=== PATIENT | female | born 1965 | race Caucasian/White ===

== ENCOUNTER 2016-04-11 12:12 | Outpatient (CLI) | payer BC | END 2016-04-11 12:13 | disposition home or self-care (01) | DX: E11.9 Type 2 diabetes mellitus without complications (principal); R20.9 Unspecified disturbances of skin sensation ==

== ENCOUNTER 2017-03-09 08:00 | Outpatient (CLI) | payer BC ==
[2017-03-09 19:57] LABS: ALBUMIN 4.2 g/dL (3.2-5.5); ALBUMIN/GLOBULIN RATIO 1.4 (1.0-2.2); ALKALINE PHOSPHATASE 47 IU/L (42-121); ALT ALANINE AMINOTRANSFERASE 14 IU/L (10-60); AST ASPARTATE AMINOTRANSFERASE 18 IU/L (10-42); BILIRUBIN,TOTAL 0.3 mg/dL (0.2-1.0); BUN - BLOOD UREA NITROGEN 8 mg/dL (6-20); CALCIUM 8.8 mg/dL (8.5-10.3); CARBON DIOXIDE - CO2 27 mmol/L (21-32); CHLORIDE 101 mmol/L (101-111); CREATININE 0.5 mg/dL (0.4-1.0); GFR - MDRD 131 (>89); GLUCOSE 175 mg/dL (70-100); SODIUM 136 mmol/L (135-145); TOTAL PROTEIN 7.1 g/dL (6.7-8.2)
[2017-03-09 21:00] LABS: HB2 TOTAL 12.7 g/dL; HEMOGLOBIN A1C 0.71 g/dL; HEMOGLOBIN A1C % 7.3 % (4.6-6.2)
== END 2017-03-09 08:01 | disposition home or self-care (01) ==
LOC: LAB.WCP 08:00
PROVIDERS: ATTEND Physician Assistant Medical
DX: E11.9 Type 2 diabetes mellitus without complications (principal); E03.9 Hypothyroidism, unspecified
CPT/HCPCS: 36415; 80053; 82043; 83036; 84443

== ENCOUNTER 2019-08-04 07:00 | Outpatient (CLI) | payer OTHER ==
[2019-08-04 20:07] LABS: CANDIDA GROUP DNA NEGATIVE (NEGATIVE); CANDIDA KRUSEI DNA NEGATIVE (NEGATIVE); TRICHOMONAS VAGINALIS DNA NEGATIVE (NEGATIVE)
== END 2019-08-04 23:59 | disposition home or self-care (01) ==
LOC: LAB.R 07:00
PROVIDERS: ATTEND Obstetrics & Gynecology
DX: N89.8 Other specified noninflammatory disorders of vagina (principal)
CPT/HCPCS: 87661; 87801

== ENCOUNTER 2019-10-27 08:43 | Outpatient (CLI) | payer OTHER ==
[2019-10-27 12:09] LABS: CALCIUM 8.9 mg/dL (8.5-10.3); CREATININE 0.4 mg/dL (0.4-1.0)
== END 2019-10-27 23:59 | disposition home or self-care (01) ==
LOC: LAB.WCP 08:43
PROVIDERS: ATTEND Physician Assistant Medical
DX: E11.9 Type 2 diabetes mellitus without complications (principal)
CPT/HCPCS: 36415; 80048; 83036

== ENCOUNTER 2020-08-24 10:34 | Outpatient (CLI) | payer OTHER ==
[2020-08-24 17:49] LABS: BASOPHILS # (AUTO) 0.1 10^3/uL (0.0-0.1); BASOPHILS % (AUTO) 0.6 %; EOSINOPHILS # (AUTO) 0.1 10^3/uL (0.0-0.7); EOSINOPHILS % (AUTO) 1.4 %; HCT - HEMATOCRIT 41.6 % (37.0-47.0); HGB - HEMOGLOBIN 12.9 g/dL (12.0-16.0); LYMPHOCYTES # (AUTO) 1.3 10^3/uL (1.5-3.5); LYMPHOCYTES % (AUTO) 14.6 %; MEAN CORPUSCULAR HEMOGLOBIN 25.9 pg (27.0-31.0); MEAN CORPUSCULAR VOLUME 83.4 fL (81.0-99.0); MEAN PLATELET VOLUME 10.1 fL (7.9-10.8); MONOCYTES # (AUTO) 0.6 10^3/uL (0.0-1.0); MONOCYTES % (AUTO) 6.4 %; NEUTROPHILS # (AUTO) 6.7 10^3/uL (1.5-6.6); NEUTROPHILS % (AUTO) 76.4 %; PLT - PLATELET COUNT 300 10^3/uL (130-450); RED BLOOD COUNT 4.99 10^6/uL (4.20-5.40); RED CELL DISTRIBUTION WIDTH 17.8 % (12.0-15.0); WHITE BLOOD COUNT 8.7 x10^3/uL (4.8-10.8)
[2020-08-24 18:09] LABS: ALBUMIN 3.8 g/dL (3.2-5.5); ALBUMIN/GLOBULIN RATIO 1.1 (1.0-2.2); ALKALINE PHOSPHATASE 70 IU/L (42-121); ALT ALANINE AMINOTRANSFERASE 11 IU/L (10-60); AST ASPARTATE AMINOTRANSFERASE 13 IU/L (10-42); BILIRUBIN,TOTAL 0.3 mg/dL (0.2-1.0); BUN - BLOOD UREA NITROGEN 8 mg/dL (6-20); CALCIUM 8.9 mg/dL (8.5-10.3); CARBON DIOXIDE - CO2 26 mmol/L (21-32); CHLORIDE 99 mmol/L (101-111); CHOL/HDL RATIO 3.8 (<4.4); CHOLESTEROL 217 mg/dL; CREATININE 0.4 mg/dL (0.4-1.0); GFR - MDRD 168 (>89); GLUCOSE 126 mg/dL (70-100); HDL CHOLESTEROL 57 mg/dL; LDL CHOLESTEROL,CALCULATED 132 mg/dL; LDL/HDL RATIO 2.3 (<4.4); POTASSIUM 4.2 mmol/L (3.5-5.0); SODIUM 134 mmol/L (135-145); TOTAL PROTEIN 7.3 g/dL (6.7-8.2); TRIGLYCERIDES 139 mg/dL; VLDL CHOLESTEROL 28 mg/dL
[2020-08-24 21:09] LABS: ESTIMATED AVERAGE GLUCOSE 186 mg/dL (70-100); HEMOGLOBIN A1c% 8.1 % (4.27-6.07)
== END 2020-08-24 23:59 | disposition home or self-care (01) ==
LOC: LAB.WCP 10:34
PROVIDERS: ATTEND Internal Medicine Rheumatology
DX: E11.9 Type 2 diabetes mellitus without complications (principal); L40.50 Arthropathic psoriasis, unspecified
CPT/HCPCS: 36415; 80053; 80061; 83036; 83721; 85025; 85651

== ENCOUNTER 2022-03-13 15:33 | Outpatient (CLI) | payer OTHER ==
--- NOTE | 2022-03-15 11:03 | Mammography Report ---
BILATERAL DIGITAL SCREENING MAMMOGRAM 3D/2D: 03/13/2022 CLINICAL: Baseline exam. Routine screening. No prior exams were available for comparison. There are scattered areas of fibroglandular density in both breasts (category b / 25%-50% glandular t issue). No significant masses, calcifications, or other findings are seen in either breast. IMPRESSION: NEGATIVE There is no mammographic evidence of malignancy. A 1 year screening mammogram is recommended. Based on the Tyrer Cuzick model (a risk assessment model) the patients lifetime risk is 7.7% and her 10 year risk is 2.2%. According to the ACR, ACS, and NCCN guidelines, an annual breast MRI exam skylar g with mammogram is recommended if the patients lifetime risk is 20% or greater. This exam was interpreted at Station ID: [id number]. NOTE: For mammograms, a report in lay terms will be sent to the patient. Approximately 15% of breast malignancies will not be visualized mammographically. In the management of a palpable breast mass, a negative mammogram must not discourage biopsy of a clinically suspicious lesion. Electronically Signed By: Cata woo/mehul:03/14/2022 11:28:41 ACR BI-RADS Category 1: Negative 3341F PARENCHYMAL PATTERN: (A) - The breast(s) demonstrate(s) scattered fibroglandular densities. BI-RADS CATEGORY: (1) - 1 RECOMMENDATION: (ANNUAL) - Recommend routine annual screening mammography. [id number] 1 year screening LATERALITY: (B)
== END 2022-03-13 15:34 | disposition home or self-care (01) ==
LOC: DI.N 15:33
DX: Z12.31 Encounter for screening mammogram for malignant neoplasm of breast (principal)

== ENCOUNTER 2022-03-27 15:14 | Outpatient (CLI) | payer OTHER ==
--- NOTE | 2022-03-28 14:23 | Ultrasound Report ---
PROCEDURE: Pelvic w/Transvaginal INDICATIONS: DUB TECHNIQUE: Real-time scanning was performed of the pelvic organs, with image documentation. Additional endovagi nal scanning was necessary due to incomplete visualization of the adnexal and endometrial structures by transabdominal scanning. COMPARISON: None. FINDINGS: Uterus: Uterus is anteverted and enlarged in size at 12.7 x 7.1 x 7.8 cm. The myometrium is heterog eneous. There is a fundal anterior intramural focus of heterogeneous echogenicity measuring 22 x 18 x 20 mm. A right posterior intramural focus of heterogeneous echogenicity measures 18 x 17 x 15 mm. Th ere is a similar focus near the cervix measuring 31 x 20 x 32 mm. The endometrium measures 10 mm in c ombined thickness. The endometrium is thickened with increased appearance of vascularity. No definit aron mass is clearly identified. Ovaries: The right ovary measures 3.0 x 1.4 x 1.8 cm, with a calculated ovarian volume of 4 cc. The left ovary measures 4.0 x 2.1 x 3.0 cm, with a calculated ovarian volume of 3.2 cc. There is a focus of decreased echogenicity within the left ovary measuring 1.9 x 1.8 x 1.8 cm. Other: No pathologic free abdominal or pelvic fluid. IMPRESSION: Uterus is enlarged with multiple foci of heterogeneous echogenicity most suggestive of fibroids. Endometrial is thickened if this patient is postmenopausal, and endometrial biopsy is recommended. Reviewed by: Genia Ramey MD on 03/28/2022 2:22 PM PST Approved by: Genia Ramey MD on 03/28/2022 2:22 PM PST Station ID: [id number]
== END 2022-03-27 15:15 | disposition home or self-care (01) ==
LOC: DI 15:14
PROVIDERS: ATTEND Physician Assistant Medical
DX: R93.89 Abnormal findings on diagnostic imaging of other specified body structures (principal); N93.8 Other specified abnormal uterine and vaginal bleeding

== ENCOUNTER 2022-05-01 10:04 | Outpatient (CLI) | payer OTHER ==
[2022-05-01 12:46] LABS: BASOPHILS # (AUTO) 0.1 10^3/uL (0.0-0.1); BASOPHILS % (AUTO) 0.6 %; EOSINOPHILS # (AUTO) 0.2 10^3/uL (0.0-0.7); EOSINOPHILS % (AUTO) 1.7 %; HCT - HEMATOCRIT 45.4 % (37.0-47.0); HGB - HEMOGLOBIN 14.5 g/dL (12.0-16.0); LYMPHOCYTES # (AUTO) 1.4 10^3/uL (1.5-3.5); MEAN CORPUSCULAR HEMOGLOBIN 28.8 pg (27.0-31.0); MEAN CORPUSCULAR HGB CONC 31.9 g/dL (32.0-36.0); MEAN CORPUSCULAR VOLUME 90.3 fL (81.0-99.0); MEAN PLATELET VOLUME 11.2 fL (7.9-10.8); MONOCYTES # (AUTO) 0.6 10^3/uL (0.0-1.0); MONOCYTES % (AUTO) 6.9 %; NEUTROPHILS # (AUTO) 6.4 10^3/uL (1.5-6.6); NEUTROPHILS % (AUTO) 74.1 %; PLT - PLATELET COUNT 235 10^3/uL (130-450); RED BLOOD COUNT 5.03 10^6/uL (4.20-5.40); RED CELL DISTRIBUTION WIDTH 13.7 % (12.0-15.0); WHITE BLOOD COUNT 8.7 x10^3/uL (4.8-10.8)
[2022-05-01 13:14] LABS: ALBUMIN 3.8 g/dL (3.2-5.5); ALBUMIN/GLOBULIN RATIO 1.2 (1.0-2.2); BILIRUBIN,TOTAL 0.9 mg/dL (0.2-1.0); CALCIUM 9.2 mg/dL (8.5-10.3); CREATININE 0.6 mg/dL (0.4-1.0); POTASSIUM 4.1 mmol/L (3.5-5.0)
[2022-05-01 13:41] LABS: CHOL/HDL RATIO 2.8 (<4.4); CHOLESTEROL 159 mg/dL; HDL CHOLESTEROL 57 mg/dL; LDL CHOLESTEROL,CALCULATED 82 mg/dL; LDL/HDL RATIO 1.4 (<4.4); TRIGLYCERIDES 100 mg/dL; VLDL CHOLESTEROL 20 mg/dL
[2022-05-01 13:42] LABS: ESTIMATED AVERAGE GLUCOSE 258 mg/dL (70-100); HEMOGLOBIN A1c% 10.6 % (4.27-6.07)
[2022-05-01 13:51] LABS: THYROID STIMULATING HORMONE 0.59 uIU/mL (0.34-5.60)
[2022-05-01 14:19] LABS: FOLLICLE STIMULATING HORMONE 18.85 mIU/mL
== END 2022-05-01 10:05 | disposition home or self-care (01) ==
LOC: LAB.N 10:04
PROVIDERS: ATTEND Physician Assistant Medical
DX: Z00.00 Encounter for general adult medical examination without abnormal findings (principal); R93.89 Abnormal findings on diagnostic imaging of other specified body structures; E11.9 Type 2 diabetes mellitus without complications; E78.5 Hyperlipidemia, unspecified; E03.9 Hypothyroidism, unspecified
CPT/HCPCS: 36415; 80053; 80061; 83001; 83036; 83721; 84443; 85025

== ENCOUNTER 2022-05-25 07:06 | Outpatient (CLI) | payer OTHER ==
--- NOTE | 2022-05-25 10:49 | Ultrasound Report ---
PROCEDURE: Abdomen Limited INDICATIONS: RUQ ABDOMINAL PAIN TECHNIQUE: Real-time scanning was performed of the abdominal and retroperitoneal organs, with image documentatio n. COMPARISON: None. FINDINGS: Liver: Liver is normal in size and homogeneous in echotexture. Gallbladder: Cholelithiasis with gallbladder wall thickening. Biliary ducts: Intrahepatic bile ducts are non-dilated. Extrahepatic bile duct caliber measures 6 m m. Normal is 6-7 mm or less in diameter, or 10 mm or less post-cholecystectomy. Pancreas: Visualized portions of the pancreas are sonographically normal. Right kidney: Normal in size and echotexture. Right kidney measures 13.1 cm long. No hydronephrosis or nephrolithiasis. No solid masses. No complex renal cystic lesions which require follow-up. Aorta: Visualized aorta is normal in caliber at less than 3 cm. IVC: Intrahepatic inferior vena cava is patent. Miscellaneous: No free abdominal fluid. IMPRESSION: 1.Cholelithiasis with gallbladder wall thickening. The gallbladder is not distended and no sonographi c Hu's sign was reported. Findings probably do not indicate acute cholecystitis at this time, but is not entirely excluded based on these images. Reviewed by: Miguel Medina on 05/25/2022 10:48 AM PDT Approved by: Miguel Medina on 05/25/2022 10:48 AM PDT Station ID: [id number]
== END 2022-05-25 07:07 | disposition home or self-care (01) ==
LOC: DI 07:06
PROVIDERS: ATTEND Physician Assistant Medical
DX: R10.11 Right upper quadrant pain (principal); K80.20 Calculus of gallbladder without cholecystitis without obstruction

== ENCOUNTER 2022-05-27 10:19 | Emergency (ER) | payer OTHER ==
[2022-05-27 11:03] LABS: HCG UR QUAL NEGATIVE
[2022-05-27 11:08] LABS: GLUCOSE, URINE (UA) 500 mg/dL (NEGATIVE); KETONES,URINE (UA) >=80 mg/dL (NEGATIVE); LEUKOCYTE ESTERASE, URINE NEGATIVE (NEGATIVE); NITRITE,URINE NEGATIVE (NEGATIVE); OCCULT BLOOD,URINE LARGE (NEGATIVE); PH,URINE 5.5 PH (5.0-7.5); PROTEIN,URINE 30 mg/dL (NEGATIVE); UROBILINOGEN,URINE 1 (NORMAL) E.U./dL (NORMAL)
[2022-05-27 11:11] LABS: BILIRUBIN,URINE MODERATE (NEGATIVE); CLARITY,URINE CLOUDY (CLEAR); ICTOTEST,URINE POSITIVE
[2022-05-27 11:12] LABS: BACTERIA,URINE Few /HPF (None Seen); CASTS, URINE 0-2 Cellular Casts /LPF; RBC,URINE TNTC /HPF (0-5); SQUAMOUS EPITHELIAL CELL,UR MOD Squamous (<= Few)
[2022-05-27] MEDS ORDERED: SODIUM CHLORIDE 0.9% 1,000 ML IV STA (11:44)
[2022-05-27] MEDS ORDERED: ONDANSETRON 4 MG/2 ML VIAL IVP STA (11:44)
[2022-05-27 11:46] LABS: BASOPHILS % (AUTO) 0.3 %; EOSINOPHILS % (AUTO) 0.3 %; HCT - HEMATOCRIT 48.1 % (37.0-47.0); HGB - HEMOGLOBIN 15.6 g/dL (12.0-16.0); LYMPHOCYTES # (AUTO) 0.5 10^3/uL (1.5-3.5); MEAN CORPUSCULAR HEMOGLOBIN 28.5 pg (27.0-31.0); MEAN CORPUSCULAR HGB CONC 32.4 g/dL (32.0-36.0); MEAN CORPUSCULAR VOLUME 87.8 fL (81.0-99.0); MEAN PLATELET VOLUME 9.8 fL (7.9-10.8); MONOCYTES # (AUTO) 0.6 10^3/uL (0.0-1.0); NEUTROPHILS # (AUTO) 5.4 10^3/uL (1.5-6.6); NEUTROPHILS % (AUTO) 82.9 %; PLT - PLATELET COUNT 199 10^3/uL (130-450); RED BLOOD COUNT 5.48 10^6/uL (4.20-5.40); RED CELL DISTRIBUTION WIDTH 14.4 % (12.0-15.0); WHITE BLOOD COUNT 6.6 x10^3/uL (4.8-10.8)
[2022-05-27 12:01] LABS: ALBUMIN 3.9 g/dL (3.2-5.5); ALBUMIN/GLOBULIN RATIO 1.1 (1.0-2.2); BILIRUBIN,TOTAL 5.2 mg/dL (0.2-1.0); CALCIUM 9.1 mg/dL (8.5-10.3); CREATININE 0.4 mg/dL (0.4-1.0); POTASSIUM 3.7 mmol/L (3.5-5.0); TOTAL PROTEIN 7.6 g/dL (6.7-8.2)
--- NOTE | 2022-05-27 13:10 | ED Physician Documentation ---
PD HPI ABD PAIN - Stated complaint Stated Complaint: ABD PX/NAUSEA/FEVER/CHILLS - Chief complaint Chief Complaint: Abd Pain - History obtained from History obtained from: Patient - Additional information Additional information: Patient is a 56-year-old female presenting for evaluation of right upper quadrant pain that has been intermittent over the past week. She recently had an outpatient ultrasound that showed gallstones and is scheduled for a consultation with the would be surgical group later this week. However yesterday night she started having increased pain and was unable to eat dinner.S he reported nausea and noted that she has been feeling itchy and looked yellow this morning.She does not take a blood thinner. Earlier in the week she felt like she had low-grade temperatures. She denies chest pain or difficulty breathing. Review of Systems Constitutional: denies: Chills Cardiac: denies: Chest pain / pressure Respiratory: denies: Dyspnea GI: reports: Abdominal Pain, Nausea. denies: Vomiting, Diarrhea : denies: Dysuria Musculoskeletal: denies: Back pain Neurologic: denies: Headache PD PAST MEDICAL HISTORY - Allergies Allergies/Adverse Reactions: Allergies Allergy/AdvReac Type Severity Reaction Status Date / Time sulfasalazine Allergy Unknown Verified 05/27/22 10:42 [From Sulfazine] PD ED PE NORMAL - General General: Alert and oriented X 3, No acute distress, Well developed/nourished - HEENT HEENT: Atraumatic, Other (Scleral icterus) - Neck Neck: Supple, no meningeal sign - Cardiac Cardiac: RRR - Respiratory Respiratory: No respiratory distress, Clear bilaterally - Abdomen Abdomen: Normal bowel sounds, Soft, Non distended, Other (No significant right upper quadrant tenderness) - Derm Derm: Other (Jaundice) - Extremities Extremities: No edema - Neuro Neuro: Normal speech Results - Vitals Vitals: Vital Signs - 24 hr 05/27/22 05/27/22 05/27/22 10:36 11:42 13:19 Temperature 36.7 C Heart Rate 97 93 88 Respiratory 24 18 18 Rate Blood Pressure 153/74 H 175/98 H 154/97 H O2 Saturation 97 97 100 05/27/22 05/27/22 05/27/22 15:13 17:03 19:07 Temperature Heart Rate 88 Respiratory 16 Rate Blood Pressure 153/79 H 149/89 H O2 Saturation 95 98 Oxygen O2 Source Room air - Labs Labs: Laboratory Tests 05/27/22 05/27/22 05/27/22 10:55 11:41 11:41 WBC 6.6 RBC 5.48 H Hgb 15.6 Hct 48.1 H MCV 87.8 MCH 28.5 MCHC 32.4 RDW 14.4 Plt Count 199 MPV 9.8 Neut # (Auto) 5.4 Lymph # (Auto) 0.5 L Kings # (Auto) 0.6 Eos # (Auto) 0.0 Baso # (Auto) 0.0 Absolute Nucleated RBC 0.00 Nucleated RBC % 0.0 Sodium 136 Potassium 3.7 Chloride 105 Carbon Dioxide 18 L Anion Gap 13.0 BUN 8 Creatinine 0.4 Estimated GFR (MDRD) 166 Glucose 108 H Calcium 9.1 Total Bilirubin 5.2 H AST 107 H ALT 305 H Alkaline Phosphatase 213 H Total Protein 7.6 Albumin 3.9 Globulin 3.7 Albumin/Globulin Ratio 1.1 Lipase 26 Urine Color BROWN Urine Clarity CLOUDY Urine pH 5.5 Ur Specific [place] 1.025 Urine Protein 30 H Urine Glucose (UA) 500 H Urine Ketones >=80 H Urine Occult Blood LARGE H Urine Nitrite NEGATIVE Urine Bilirubin MODERATE H Urine Urobilinogen 1 (NORMAL) Ur Leukocyte Esterase NEGATIVE Urine RBC TNTC H Urine WBC 11-25 H Ur Squamous Epith Cells MOD Squamous H Urine Bacteria Few Urine Casts 0-2 Cellular Casts Ur Microscopic Review INDICATED Urine Culture Comments NOT INDICATED Urine HCG, Qual NEGATIVE SARS-CoV-2 (PCR) 05/27/22 12:45 WBC RBC Hgb Hct MCV MCH MCHC RDW Plt Count MPV Neut # (Auto) Lymph # (Auto) Kings # (Auto) Eos # (Auto) Baso # (Auto) Absolute Nucleated RBC Nucleated RBC % Sodium Potassium Chloride Carbon Dioxide Anion Gap BUN Creatinine Estimated GFR (MDRD) Glucose Calcium Total Bilirubin AST ALT Alkaline Phosphatase Total Protein Albumin Globulin Albumin/Globulin Ratio Lipase Urine Color Urine Clarity Urine pH Ur Specific [place] Urine Protein Urine Glucose (UA) Urine Ketones Urine Occult Blood Urine Nitrite Urine Bilirubin Urine Urobilinogen Ur Leukocyte Esterase Urine RBC Urine WBC Ur Squamous Epith Cells Urine Bacteria Urine Casts Ur Microscopic Review Urine Culture Comments Urine HCG, Qual SARS-CoV-2 (PCR) NOT DETECTED PD Medical Decision Making - ED course Complexity details: reviewed results, re-evaluated patient ED course: 1311 - Discussed with on-call surgeon, Dr. Santizo. He agrees with plan for MRCP to see if she still has a biliary obstruction. If not then he would be able to consult and possibly take out her gallbladder this weekend. If she does have a biliary obstruction on her MRCP he recommends consideration of transfer to a facility that is able to perform an ERCP. It is possible that she could have a ERCP at another facility and be transferred back here for her cholecystectomy Is a recently done this with another patient. 1425 - Discussed with [facility]te GUERRA, Dr. Ramsey. He agrees with plan for MRCP. They do not have anyone available over the weekend to do an ERCP. If her MRCP still shows a biliary obstruction and then they would be able to do the ERCP but not until Sunday. He recommends we call him back once we have that result. Pt with RUQ pain and noted jaundice. Recent eval of her gallbladder shows cholelithiasis. VSS. No tenderness on exam as pain has resolved. Labs reviewed and significant for elevated bilirubin and LFTs. Concern for biliary obstruction. MRCP ordered and case d/w resolution manager surgery and violette GUERRA while MRCP pending. Pt given dose of zosyn. Declined pain meds. Pt signed out to Dr. Milton at shift change to f/u results of MRCP. If obstruction present, then pt will require transfer for ERCP. Departure - Departure Disposition: Home, Self Care Clinical Impression: Cholelithiasis Condition: Good Instructions: ED Gallstone W Biliary Colic Follow-Up: Surgical Care [Provider Group] Comments: Follow-up with the surgeon on Sunday as scheduled. Light low-protein low-fat diet as discussed. Return if worse.
--- NOTE | 2022-05-27 13:15 | Ultrasound Report ---
PROCEDURE: Abdomen Limited INDICATIONS: RUQ pain TECHNIQUE: Real-time focused scanning was performed of the abdomen, with image documentation. COMPARISON: Ultrasound 05/25/2022. FINDINGS: Liver is normal in size with mildly coarsened echotexture. A 2 mm calculus is seen in the gallbladder. Gallbladder wall thickening is seen measuring up to 4 mm. No significant pericholecystic fluid. Sonographic Hu sign is negative. No significant intrahepatic or extrahepatic biliary duct dilatation. The visualized portions of the pancreas are unremarkable. Right kidney measures 12.4 cm in length without hydronephrosis. No free fluid in the right upper quadrant. IMPRESSION: Cholelithiasis is again seen with gallbladder wall thickening. No pericholecystic fluid. Sonographic Hu sign is negative. Findings do not appear significantly changed compared to the exam from 2022, and Welsh equivocal for acute cholecystitis. Recommend correlation with clinical and laborat ory findings. Reviewed by: Vinod Greer MD on 05/27/2022 1:14 PM PDT Approved by: Vinod Greer MD on 05/27/2022 1:14 PM PDT Station ID: [id number]
[2022-05-27 17:04] VITALS: BP 149/89
[2022-05-27] MEDS ORDERED: PIPERACILLIN/TAZOBACTAM 3.375 GM in SODIUM CHLORIDE 0.9% MINIBAG 100 ML IV STA (17:38)
[2022-05-27] MEDS ORDERED: GADOBUTROL 10 MMOL/10 ML VIAL ONE (18:36)
[2022-05-27] MEDS ORDERED: PIPERACILLIN/TAZOBACTAM 3.375 GM in SODIUM CHLORIDE 0.9% MINIBAG 100 ML IV SCH (19:00)
[2022-05-27] MEDS ORDERED: D5.45NS W/20 MEQ KCL 1,000 ML IV SCH (19:00)
[2022-05-27] MEDS ORDERED: GADOBUTROL 10 MMOL/10 ML VIAL IVP ONE (19:55)
--- NOTE | 2022-05-27 20:10 | MRI Report ---
PROCEDURE: MRCP W/WO INDICATIONS: gallstones;elevated bilirubin and liver markers CONTRAST: GADAVIST 10.0 ML TECHNIQUE: Coronal ultra fast SE through the abdomen, axial 2-D spoiled GE in- and [id number], and breath-hold T2 FSE with fat saturation through the biliary system and pancreas. Oblique coronal and axial thin- slice ultra fast SE, radial thick-slab ultra fast SE centered on the extrahepatic bile ducts. COMPARISON: Abdominal ultrasound 05/27/2022 FINDINGS: Image quality: Excellent. Pancreas and biliary system: Small dependent gallstones are seen in the gallbladder. Gallbladder wal l thickening on ultrasound is not definitely redemonstrated on MRI. No pericholecystic fluid or fatty infiltration. No intrahepatic or extra hepatic biliary duct dilatation. No filling defect is seen in the common bile duct. Pancreatic duct is not dilated. No focal lesion is seen within the pancreas. Other solid organs: Spleen is mildly enlarged, measuring up to 14.6 cm in maximum craniocaudal dimens ion. Liver is normal in size. No significant fatty infiltration of the liver. No adrenal nodules. Clive th kidneys are normal in size, without hydronephrosis. Nodes and vessels: No retroperitoneal or mesenteric adenopathy by size criteria. Aorta and inferior vena cava are normal in size. Bowel and peritoneum: Unenhanced bowel loops are normal in caliber. No free fluid. Lung bases: No basal pleural effusions. Heart size is normal. Bones and soft tissues: No ventral hernias. Bone marrow is of normal overall signal. Degenerative changes are noted in the spine. IMPRESSION: 1.Cholelithiasis without signs of acute cholecystitis. Previously seen gallbladder wall thickening on ultrasound is not redemonstrated on MRI. 2.No intrahepatic or extrahepatic biliary duct dilatation. Reviewed by: Vinod Greer MD on 05/27/2022 8:08 PM PDT Approved by: Vinod Greer MD on 05/27/2022 8:08 PM PDT Station ID: [id number]
--- NOTE | 2022-05-27 20:42 | ED Physician Documentation ---
ED Addendum - Addendum Addendum: 05/27/22 20:42 56-year-old woman signed out to me at shift change by Dr. Christian pending MRCP. The MRCP has been completed and shows cholelithiasis only, no sign of choledocholithiasis, no biliary ductal dilatation, and no persistent cholecystitis. Patient seen and examined at bedside. She has no right upper quadrant tenderness. She is not in pain. Given these findings she can be safely discharged for outpatient follow-up with surgery and she has an appointment reportedly this week for that. We discussed gallbladder diet. Diagnosis: 1. Resolved biliary obstruction 2. Cholelithiasis without cholecystitis. Disposition: Discharged home Condition: Stable
== END 2022-05-27 21:30 | disposition home or self-care (01) ==
LOC: ED 10:19
DX: K80.20 Calculus of gallbladder without cholecystitis without obstruction (principal); E80.6 Other disorders of bilirubin metabolism; R94.5 Abnormal results of liver function studies
CPT/HCPCS: 36415; 74183; 76705; 80053; 81001; 81025; 83690; 85025; 87635; 96365; 96375; 99284; A9585; 81003; 85610; 87086

== ENCOUNTER 2022-06-19 10:26 | Day surgery (SDC) | payer OTHER ==
[2022-06-19] MEDS ORDERED: LACTATED RINGERS 1,000 ML IV ONE ×2 (10:30→14:29)
[2022-06-19] MEDS ORDERED: CEFAZOLIN 2G/50ML 0.9% NS 2 GM/50 ML BAG IV ONE (10:33)
[2022-06-19 10:45] LABS: HCG UR QUAL NEGATIVE
--- NOTE | 2022-06-19 11:38 | ANESTHESIA ---
Pre-Anesthesia VS, & Labs - Diagnosis cholecystitis - Procedure Laparoscopic cholecystectomy Vital Signs: Temp Pulse Resp BP Pulse Ox O2 Flow Rate 36 C L 91 16 151/91 H 97 06/19/22 10:36 06/19/22 10:36 06/19/22 10:36 06/19/22 10:36 06/19/22 10:36 Height: 5 ft 5 in Weight (kg): 100 kg Body Mass Index: 36.6 BMI Classification: Obese - NPO >8 hours - Is Patient ?: No - Lab Results Current Lab Results: Laboratory Tests 06/19/22 11:10: POC Whole Bld Glucose 199 H Home Medications and Allergies Home Medications: Ambulatory Orders Atorvastatin Calcium 40 mg PO QPM 06/13/22 Empagliflozin [Jardiance] 25 mg PO DAILY 06/13/22 Ixekizumab [Taltz Autoinjector] 80 mg INJ ONCE 06/13/22 Levothyroxine [Synthroid] 100 mcg PO QDAC 06/13/22 Lisinopril [Zestril] 20 mg PO DAILY 06/13/22 Multivitamin 1 tab PO DAILY 06/13/22 glipiZIDE [Glipizide] 10 mg PO BID 06/13/22 Atorvastatin Calcium 40 mg PO QPM 06/13/22 Empagliflozin [Jardiance] 25 mg PO DAILY 06/13/22 Ixekizumab [Taltz Autoinjector] 80 mg INJ ONCE 06/13/22 Levothyroxine [Synthroid] 100 mcg PO QDAC 06/13/22 Lisinopril [Zestril] 20 mg PO DAILY 06/13/22 Multivitamin 1 tab PO DAILY 06/13/22 glipiZIDE [Glipizide] 10 mg PO BID 06/13/22 Allergies/Adverse Reactions: Allergies Allergy/AdvReac Type Severity Reaction Status Date / Time sulfasalazine Allergy swelling Verified 06/13/22 15:17 [From Sulfazine] Anes History & Medical History - Anesthetic History Anesthesia Complications: reports: No previous complications - Medical History Cardiovascular: reports: Hypertension, High cholesterol Pulmonary: reports: None Gastrointestinal: reports: Cholelithiasis Urinary: reports: None Musculoskeletal: reports: Rheumatoid arthritis, Other Endocrine/Autoimmune: reports: Type 2 diabetes, HyPOthyroidism Skin: reports: Psoriasis, Other History of Cancer?: No - Surgical History Gynecologic: reports: Other Exam General: Alert Dental: WNL Mouth Opening: Greater than 4 Fingerbreadths Neck Mobility: Normal Mallampati classification: II Respiratory: Lungs clear Cardiovascular: Regular rate Plan Anesthesia Type: General Consent for Procedure(s) Verified and Reviewed: Yes Code Status: Attempt Resuscitation ASA classification: 2-Mild systemic disease Is this case an emergency?: No
[2022-06-19] MEDS ORDERED: MORPHINE 2 MG/ML CARPUJECT IVP PRN (11:57)
[2022-06-19] MEDS ORDERED: HYDROmorphone 0.5 MG/0.5 ML SYRINGE IVP PRN ×2 (11:57→14:33)
[2022-06-19] MEDS ORDERED: ATROPINE ABBOJECT 1 MG/10 ML SYRINGE IVP PRN (11:57)
[2022-06-19] MEDS ORDERED: NALOXONE 0.4 MG/ML VIAL IVP PRN (11:57)
[2022-06-19] MEDS ORDERED: fentaNYL 100 MCG/2 ML VIAL IVP PRN (11:57)
[2022-06-19] MEDS ORDERED: ONDANSETRON 4 MG/2 ML VIAL IVP PRN ×2 (11:57→14:33)
[2022-06-19] MEDS ORDERED: ePHEDrine 50 MG/ML VIAL IVP PRN (11:57)
[2022-06-19] MEDS ORDERED: METOCLOPRAMIDE 10 MG/2 ML VIAL IVP PRN (11:57)
[2022-06-19] MEDS ORDERED: LACTATED RINGERS 1,000 ML IV SCH (12:00)
[2022-06-19] MEDS ORDERED: PROPOFOL 200 MG/20 ML VIAL IVP ONE (12:18)
[2022-06-19] MEDS ORDERED: ROCURONIUM 50 MG/5 ML VIAL ONE (12:18)
[2022-06-19] MEDS ORDERED: LIDOCAINE-PF 2% 10 ML AMP SUBQ ONE (12:19)
[2022-06-19] MEDS ORDERED: MIDAZOLAM 2 MG/2 ML VIAL ONE (12:19)
[2022-06-19] MEDS ORDERED: fentaNYL 100 MCG/2 ML VIAL ONE ×2 (12:19→14:02)
[2022-06-19] MEDS ORDERED: BUPIVACAINE 0.25% PF 30 ML VIAL ONE (12:27)
[2022-06-19] MEDS ORDERED: DEXAMETHASONE 4 MG/ML VIAL ONE (12:56)
[2022-06-19] MEDS ORDERED: ACETAMINOPHEN 1,000 MG/100 ML 1,000 MG/100 ML BAG IV ONE (12:56)
[2022-06-19] MEDS ORDERED: ONDANSETRON 4 MG/2 ML VIAL ONE (12:56)
[2022-06-19] MEDS ORDERED: ePHEDrine 50 MG/ML VIAL IVP ONE (13:09)
[2022-06-19] MEDS ORDERED: BUPIVACAINE 0.25% PF 30 ML VIAL SUBQ ONE (13:12)
[2022-06-19] MEDS ORDERED: SUGAMMADEX 200 MG/2 ML VIAL IVP ONE (13:55)
[2022-06-19] MEDS ORDERED: KETOROLAC 30 MG/ML VIAL ONE (13:55)
[2022-06-19] MEDS ORDERED: HYDROcod/ACETAM 5/325 MG TABLET PO PRN (14:33)
--- NOTE | 2022-06-19 14:39 | OPERATIVE REPORT ---
Operative Report - General Procedure Date: 06/19/22 Planned Procedure: lap deedee Pre-Op Diagnosis: chronic cholecystitis Procedure Performed: lap deedee. extra difficult Post Op Diagnosis: chronic cholecystitis - Procedure Note Primary Surgeon: ruth christensen Anesthesia Technique: General ET tube, Local Pathology: gallbladder Estimated Blood Loss (mL): 5 Drain/Tube Type: Other (none) Indications: chronic cholecystitis and recent choledocholithiasis Findings: short cystic duct and cystic artery with gallbladder adherent to the right hepatic artery Complications: none - Other Other Information/Narrative: The patient was properly identified brought to the operating room and placed in supine position. She voided prior to surgery. Sequential compression devices were placed. General endotracheal tracheal anesthesia was induced. She was prepped and draped in a sterile fashion and given preoperative antibiotics local anesthetic was given to incision areas. A 2 cm incision was made approximately 4 cm cephalad and 4 cm right lateral of her umbilicus. Dissection proceeded down to the fascia. The fascia was incised lifted upwards and abdomen entered with a Veress needle. CO2 was insufflated to a pressure of 15. A Visiport trocar with 30 degree scope was placed. No evidence of injury from Veress needle or trocar placement. Under direct vision two 5 mm trocars were placed in the right upper quadrant and a 10 mm trocar was placed in the epigastrium. Fundus of the gallbladder was retracted cephalad. Omentum and duodenum was carefully peeled off from the gallbladder. The gallbladder was mobilized more anterior by taking down the lateral attachments partially. The infundibulum of the gallbladder was retracted right lateral and caudad. A significant amount of time was taken dissecting the triangle area. The note of the line was removed exposing the cystic artery. She had contraction of this area. She had a considerable amount of scar tissue as well. The bottom of the gallbladder was further mobilized off from the bed of the liver. A larger bare cystic plate area was carefully developed. Became clear she had a short cystic duct and short cystic artery and the gallbladder was adherent to the right hepatic artery. The cystic artery was further dissected to where it became tightly attached to the gallbladder. The cystic artery was clipped at the gallbladder and x2 slightly proximal and sharply divided. Gallbladder was further mobilized off from the hepatic artery with careful dissection using a [place] and [place] dissector the cystic duct was further mobilized towards the gallbladder from an anterior right lateral and left lateral perspective. Eventually a large window was created and a large bare cystic plate area was created. The cystic duct was then clipped at the gallbladder and x2 slightly proximal and sharply divided. Gallbladder was further mobilized off from the liver bed with use of hook caut alex. There was no spillage of bile or stone material. The gallbladder was placed in Endo Catch bag and brought out through the epigastric trocar site. There were no apparent complications. Clips appeared secure. The abdomen was irrigated. Fascia at the larger trocar sites was closed with [id number] 0 Vicryl. Skin was closed with buried interrupted and running 4-0 Monocryl subcuticular suture. Dressings were applied. She tolerated the procedure well was awakened and brought to recovery in good condition. Surgery was extra difficult given the densely adherent gallbladder to the hepatic artery and the presence of a very short cystic duct and cystic artery
--- NOTE | 2022-06-19 15:01 | ANESTHESIA POST OP EVALUATION ---
Anesthesia Post Eval - Post Anesthesia Eval Vitals: Last Vital Signs Temp 36.4 C L 06/19/22 14:51 Pulse 77 06/19/22 14:51 Resp 16 06/19/22 14:51 BP 135/76 H 06/19/22 14:51 Pulse Ox 95 06/19/22 14:51 O2 Flow Rate CV Function Including HR & BP: Stable Pain Control: Satisfactory Nausea & Vomiting: Negative Mental Status: Baseline Respiratory Status: Airway Patent Hydration Status: Satisfactory Anesthesia Complications: None
[2022-06-19] MEDS ORDERED: HYDROcod/ACETAM 5/325 MG TABLET ONE (15:19)
[2022-06-19 15:30] VITALS: BP 154/73
== END 2022-06-19 10:27 | disposition home or self-care (01) ==
LOC: SDS 10:26
PROVIDERS: ATTEND Surgery
PROC: 0FT44ZZ Resection of Gallbladder, Percutaneous Endoscopic Approach (ICD-10-PCS; principal; 2022-06-19 11:30)
DX: K80.10 Calculus of gallbladder with chronic cholecystitis without obstruction (principal); E66.9 Obesity, unspecified; Z68.36 Body mass index [BMI] 36.0-36.9, adult; E11.9 Type 2 diabetes mellitus without complications; I10 Essential (primary) hypertension; E03.9 Hypothyroidism, unspecified
CPT/HCPCS: 47562; 81025; A9270; J0131; J0690; J7120

== ENCOUNTER 2022-09-26 10:05 | Outpatient (CLI) | payer OTHER ==
[2022-09-26 13:21] LABS: CALCIUM 9.7 mg/dL (8.5-10.3); CREATININE 0.5 mg/dL (0.6-1.3); POTASSIUM 4.2 mmol/L (3.5-4.5)
[2022-09-26 13:48] LABS: ESTIMATED AVERAGE GLUCOSE 235 mg/dL (70-100); HEMOGLOBIN A1c% 9.8 % (4.27-6.07)
== END 2022-09-26 10:06 | disposition home or self-care (01) ==
LOC: LAB.N 10:05
PROVIDERS: ATTEND Physician Assistant Medical
DX: E11.9 Type 2 diabetes mellitus without complications (principal)
CPT/HCPCS: 36415; 80048; 83036

== ENCOUNTER 2023-02-06 11:30 | Outpatient (CLI) | payer OTHER ==
[2023-02-06 18:12] LABS: ESTIMATED AVERAGE GLUCOSE 166 mg/dL (70-100); HEMOGLOBIN A1c% 7.4 % (4.27-6.07)
[2023-02-06 18:21] LABS: BUN - BLOOD UREA NITROGEN 11 mg/dL (6-20); CARBON DIOXIDE - CO2 29 mmol/L (21-32); CHLORIDE 104 mmol/L (101-111); CHOL/HDL RATIO 2.6 (<4.4); CHOLESTEROL 163 mg/dL; CREATININE 0.6 mg/dL (0.6-1.3); GFR - MDRD 104 (>89); GLUCOSE 195 mg/dL (74-104); HDL CHOLESTEROL 63 mg/dL; LDL CHOLESTEROL,CALCULATED 80 mg/dL; LDL/HDL RATIO 1.3 (<4.4); POTASSIUM 4.4 mmol/L (3.5-4.5); SODIUM 138 mmol/L (135-145); TRIGLYCERIDES 100 mg/dL (48-352); VLDL CHOLESTEROL 20 mg/dL
== END 2023-02-06 11:31 | disposition home or self-care (01) ==
LOC: LAB.N 11:30
PROVIDERS: ATTEND Physician Assistant Medical
DX: E11.9 Type 2 diabetes mellitus without complications (principal)
CPT/HCPCS: 36415; 80048; 80061; 83036; 83721

== ENCOUNTER 2023-05-08 11:30 | Outpatient (CLI) | payer BC ==
[2023-05-08 18:05] LABS: BASOPHILS % (AUTO) 0.6 %; EOSINOPHILS # (AUTO) 0.2 10^3/uL (0.0-0.7); EOSINOPHILS % (AUTO) 2.8 %; HCT - HEMATOCRIT 44.3 % (37.0-47.0); HGB - HEMOGLOBIN 14.2 g/dL (12.0-16.0); LYMPHOCYTES # (AUTO) 1.7 10^3/uL (1.5-3.5); MEAN CORPUSCULAR HEMOGLOBIN 28.2 pg (27.0-31.0); MEAN CORPUSCULAR HGB CONC 32.1 g/dL (32.0-36.0); MEAN CORPUSCULAR VOLUME 87.9 fL (81.0-99.0); MEAN PLATELET VOLUME 11.7 fL (7.9-10.8); MONOCYTES # (AUTO) 0.5 10^3/uL (0.0-1.0); MONOCYTES % (AUTO) 7.1 %; NEUTROPHILS # (AUTO) 4.8 10^3/uL (1.5-6.6); NEUTROPHILS % (AUTO) 65.8 %; PLT - PLATELET COUNT 258 10^3/uL (130-450); RED BLOOD COUNT 5.04 10^6/uL (4.20-5.40); RED CELL DISTRIBUTION WIDTH 13.7 % (12.0-15.0); WHITE BLOOD COUNT 7.2 x10^3/uL (4.8-10.8)
[2023-05-08 18:21] LABS: ALBUMIN 4.4 g/dL (3.2-5.5); ALBUMIN/GLOBULIN RATIO 1.6 (1.0-2.2); BILIRUBIN,TOTAL 0.5 mg/dL (0.2-1.0); CREATININE 0.5 mg/dL (0.6-1.3); POTASSIUM 4.4 mmol/L (3.5-4.5); TOTAL PROTEIN 7.1 g/dL (6.4-8.9)
[2023-05-08 20:48] LABS: ESTIMATED AVERAGE GLUCOSE 203 mg/dL (70-100); HEMOGLOBIN A1c% 8.7 % (4.27-6.07)
== END 2023-05-08 11:31 | disposition home or self-care (01) ==
LOC: LAB.N 11:30
PROVIDERS: ATTEND Physician Assistant Medical
DX: E11.9 Type 2 diabetes mellitus without complications (principal); L40.50 Arthropathic psoriasis, unspecified
CPT/HCPCS: 36415; 80053; 83036; 85025; 85651

== ENCOUNTER 2023-08-07 09:27 | Outpatient (CLI) | payer BC ==
[2023-08-07 11:55] LABS: BASOPHILS % (AUTO) 0.6 %; EOSINOPHILS # (AUTO) 0.2 10^3/uL (0.0-0.7); EOSINOPHILS % (AUTO) 2.8 %; HCT - HEMATOCRIT 44.4 % (37.0-47.0); HGB - HEMOGLOBIN 14.1 g/dL (12.0-16.0); LYMPHOCYTES # (AUTO) 2.2 10^3/uL (1.5-3.5); LYMPHOCYTES % (AUTO) 29.7 %; MEAN CORPUSCULAR HEMOGLOBIN 27.6 pg (27.0-31.0); MEAN CORPUSCULAR HGB CONC 31.8 g/dL (32.0-36.0); MEAN CORPUSCULAR VOLUME 86.9 fL (81.0-99.0); MEAN PLATELET VOLUME 11.2 fL (7.9-10.8); MONOCYTES # (AUTO) 0.5 10^3/uL (0.0-1.0); MONOCYTES % (AUTO) 6.6 %; NEUTROPHILS # (AUTO) 4.3 10^3/uL (1.5-6.6); NEUTROPHILS % (AUTO) 59.6 %; PLT - PLATELET COUNT 312 10^3/uL (130-450); RED BLOOD COUNT 5.11 10^6/uL (4.20-5.40); RED CELL DISTRIBUTION WIDTH 13.9 % (12.0-15.0); WHITE BLOOD COUNT 7.3 x10^3/uL (4.8-10.8)
[2023-08-07 12:11] LABS: ALBUMIN 4.5 g/dL (3.2-5.5); ALBUMIN/GLOBULIN RATIO 1.7 (1.0-2.2); BILIRUBIN,TOTAL 0.6 mg/dL (0.2-1.0); CREATININE 0.6 mg/dL (0.6-1.3); POTASSIUM 4.5 mmol/L (3.5-4.5); TOTAL PROTEIN 7.2 g/dL (6.4-8.9)
[2023-08-07 12:30] LABS: ESTIMATED AVERAGE GLUCOSE 246 mg/dL (70-100); HEMOGLOBIN A1c% 10.2 % (4.27-6.07)
[2023-08-07 14:38] LABS: CHOL/HDL RATIO 2.4 (<4.4); CHOLESTEROL 169 mg/dL; HDL CHOLESTEROL 71 mg/dL; LDL CHOLESTEROL,CALCULATED 81 mg/dL; LDL/HDL RATIO 1.1 (<4.4); TRIGLYCERIDES 84 mg/dL (48-352); VLDL CHOLESTEROL 17 mg/dL
== END 2023-08-07 09:28 | disposition home or self-care (01) ==
LOC: LAB.N 09:27
PROVIDERS: ATTEND Internal Medicine Rheumatology
DX: L40.50 Arthropathic psoriasis, unspecified (principal); E11.9 Type 2 diabetes mellitus without complications
CPT/HCPCS: 36415; 80053; 80061; 83036; 83721; 85025; 85651